=== PATIENT | male | born 1935 | race American Indian/Alaskan Native ===

== ENCOUNTER 2018-03-07 13:13 | Observation (INO) | payer BC, MEDICARE ==
[2018-03-07 13:43] LABS: BASO # 0.02 K/mm3 (0.0-2.0); BASO % 0.2 % (0.0-3.0); EOS % 0.4 % (1.5-5.0); GRAN # 5.93 (1.4-6.5); GRAN % 60.2 % (50.0-68.0); HEMOGLOBIN 13.2 g/dL (14.0-18.0); LYMPH # 3.3 (1.2-3.4); LYMPH % 33.5 % (22.0-35.0); MEAN CELL VOLUME 85.3 fl (80.0-105.0); MEAN CORPUSCULAR HEMOGLOBIN 28.1 pg (25.0-35.0); MEAN CORPUSCULAR HGB CONC 32.9 g/dl (31.0-37.0); MEAN PLATELET VOLUME 11.2 fl (7.0-11.0); MONO # 0.6 (0.1-0.6); MONO % 5.7 % (1.0-6.0); RBC 4.7 10^6/uL (3.5-6.1); RED CELL DISTRIBUTION WIDTH 15.8 % (11.5-14.5); WHITE BLOOD COUNT 9.9 10^3/uL (4.5-11.0)
[2018-03-07 14:00] LABS: ALB/GLOB RATIO 1.3 (1.1-1.8); ALBUMIN 3.8 g/dL (3.0-4.8); ALT/SGPT 21 U/L (7-56); AST/SGOT 20 U/L (17-59); BLOOD UREA NITROGEN 18 mg/dL (7-21); CALCIUM 9.3 mg/dL (8.4-10.5); GFR NON-AFRICAN AMERICAN > 60
--- NOTE | 2018-03-07 14:05 | RAD ---
Date of service: 03/07/2018 HISTORY: chest pain COMPARISON: 11/03/2013 FINDINGS: LUNGS: No active pulmonary disease. PLEURA: No significant pleural effusion identified, no pneumothorax apparent. CARDIOVASCULAR: No aortic atherosclerotic calcification present. Normal cardiac size. No pulmonary vascular congestion. OSSEOUS STRUCTURES: No significant abnormalities. VISUALIZED UPPER ABDOMEN: Normal. OTHER FINDINGS: None. IMPRESSION: No active disease.
[2018-03-07 14:11] LABS: B-TYPE NATRIURETIC PEPTIDE 134 pg/mL (0-450); TROPONIN I < 0.01 ng/mL
[2018-03-07] MEDS ORDERED: Iohexol 350 MG/100 ML VIAL ONE (14:24)
--- NOTE | 2018-03-07 14:39 | ED PDOC ---
Arrival/HPI - General Chief Complaint: Chest Pain Time Seen by Provider: 03/07/18 13:21 Historian: Patient - History of Present Illness Narrative History of Present Illness (Text): 03/07/18 13:33 83 year old male who has no significant past medical history who presents to the emergency department complaining of intermittent episodes of chest pain with most recent episode being yesterday. Per patient he was instructed to come to the emergency room for evaluation of his symptoms. Patient reports that the pain is localized to the midsternal region, and admits to having episodes of chest pain last week, which resolve with time. He denies taking any Aspirin or other medications to alleviate his episodes, and admits that chest pain is associated with shortness of breath. Of note he denies any dyspnea on exertion, and denies exacerbation of his symptoms with certain meals or activities. Patient states that he currently isn't having chest pain, but rates the severity of the episodes as 10/10. He has also been experiencing occasional abdominal pain at night, and notes that he has tried to belch to alleviate his chest pain. Patient also notes occasional left shoulder pain, and positional side pain. He is a former smoker, denies any history of hypertension or diabetes. Of note had a normal bowel movement this morning. Patient denies fevers, chills, cough, nausea, vomiting, diarrhea, back pain, neck pain, headache, or any other complaint. PMD: Time/Duration: 1 week Symptom Onset: Sudden Symptom Course: Intermittent Severity Level: 10 Context: Home Past Medical History - Provider Review Nursing Documentation Reviewed: Yes - Travel History Have you recently traveled outside [place] w/in the past 3 mons?: No - Infectious Disease Hx of Infectious Diseases: None - Tetanus Immunization Tetanus Immunization: Unknown - Past Medical History Past Medical History: No Previous - Psychiatric Hx Depression: No Hx Emotional Abuse: No Hx Physical Abuse: No Hx Substance Use: No - Surgical History Hx Amputation: Yes (traumatic at work tip of ) Hx Cholecystectomy: Yes (galstones remove) - Anesthesia Hx Anesthesia: Yes Hx Anesthesia Reactions: No Hx Malignant Hyperthermia: No - Suicidal Assessment Feels Threatened In Home Enviroment: No Family/Social History - Physician Review Nursing Documentation Reviewed: Yes Family/Social History: No Known Family HX Smoking Status: Never Smoked Hx Alcohol Use: No Hx Substance Use: No Hx Substance Use Treatment: No Allergies/Home Meds Allergies/Adverse Reactions: Allergies No Known Allergies Allergy (Verified 03/07/18 18:55) Home Medications: Home Meds Medication Instructions Recorded Confirmed RX: No Known Home Med 03/07/18 03/07/18 Review of Systems - Physician Review All systems were reviewed & negative as marked: Yes - Review of Systems Constitutional: absent: Night Sweats Respiratory: SOB. absent: Cough Cardiovascular: Chest Pain. absent: GREENE, Syncope Gastrointestinal: Abdominal Pain. absent: Nausea, Vomiting Genitourinary Male: absent: Dysuria Musculoskeletal: absent: Back Pain, Neck Pain Neurological: Dizziness (dizziness when lying down). absent: Headache Physical Exam Vital Signs Reviewed: Yes Vital Signs Temp Pulse Resp BP Pulse Ox 03/07/18 13:19 98.2 F 71 18 141/62 96 Temperature: Afebrile Blood Pressure: Normal Pulse: Regular Respiratory Rate: Normal Appearance: Positive for: Well-Appearing Mental Status: Positive for: Alert and Oriented X 3 - Systems Exam Head: Present: Atraumatic, Normocephalic Pupils: Present: PERRL Extroacular Muscles: Present: EOMI Conjunctiva: Present: Normal Mouth: Present: Moist Mucous Membranes Neck: Present: Normal Range of Motion Respiratory/Chest: Present: Clear to Auscultation, Good Air Exchange. No: Respiratory Distress, Accessory Muscle Use, Tender to Palpation Cardiovascular: Present: Regular Rate and Rhythm, Normal S1, S2. No: Murmurs Abdomen: No: Tenderness, Distention, Peritoneal Signs Back: Present: Normal Inspection, Other (Tenderness to palpation over left side trapezius muscle.) Upper Extremity: Present: Other (distal fingertip amputation of third digit of left hand). No: Cyanosis, Edema Lower Extremity: Present: Normal Inspection. No: Edema Neurological: Present: GCS=15, CN II-XII Intact, Speech Normal Skin: Present: Warm, Dry, Normal Color. No: Rashes Psychiatric: Present: Alert, Oriented x 3, Normal Insight, Normal Concentration Medical Decision Making ED Course and Treatment: 03/07/18 13:33 Impression: 83 year old male complaining of intermittent chest pain that started last week with associated shortness of breath. Differential Diagnosis included but are not limited to: ACS Pneumonia Pulmonary Embolism Plan: -- Abdominal and Pelvic CT with IV contrast -- EKG -- Labs -- Cardiac enzymes -- D-dimer -- Chest X-ray -- Pepcid -- Toradol -- Reassess and disposition Prior Visits: Notes and results from previous visits were reviewed. Progress Notes: 03/07/18 15:[address] Canela(PCP), who accepts patient onto his service. 03/07/18 15:15 Dr. Canela called back stating that the patient has a primary physician that admits to the hospital. After review of chart patients PCP is . Will contact PCP. 03/07/18 15:19 Discussed case with (PCP), who is aware of and accepts patient under his service, and requests for cardiology consult. Requests CTA. - Lab Interpretations Lab Results: 03/07/18 13:29 03/07/18 13:29 Lab Results 03/07/18 13:29: Sodium 140, Potassium 4.4, Chloride 105, Carbon Dioxide 27, Anion Gap 12, BUN 18, Creatinine 0.9, Est GFR ( Amer) > 60, Est GFR (Non- Af Amer) > 60, Random Glucose 97, Calcium 9.3, Magnesium 2.2, Total Bilirubin 0.7, AST 20, ALT 21, Alkaline Phosphatase 86, Troponin I < 0.01, NT-Pro-B Natriuret Pep 134, Total Protein 6.7, Albumin 3.8, Globulin 2.9, Albumin/Globulin Ratio 1.3 03/07/18 13:29: D-Dimer, Quantitative 244 H 03/07/18 13:29: WBC 9.9, RBC 4.70, Hgb 13.2 L, Hct 40.1 L, MCV 85.3, MCH 28.1, MCHC 32.9, RDW 15.8 H, Plt Count 244, MPV 11.2 H, Gran % 60.2, Lymph % (Auto) 33.5, [place] % (Auto) 5.7, Eos % (Auto) 0.4 L, Baso % (Auto) 0.2, Gran # 5.93, Lymph # (Auto) 3.3, [place] # (Auto) 0.6, Eos # (Auto) 0.0, Baso # (Auto) 0.02 I have reviewed the lab results: Yes - RAD Interpretation Narrative RAD Interpretations (Text): 03/07/[address] with IV contrast: Dictator : Yogi Saavedra MD FINDINGS: LOWER THORAX: Unremarkable. LIVER: Unremarkable. No gross lesion or ductal dilatation. GALLBLADDER AND BILE DUCTS: Unremarkable. PANCREAS: Unremarkable. No gross lesion or ductal dilatation. SPLEEN: Unremarkable. ADRENALS: Unremarkable. No mass. KIDNEYS AND URETERS: Unremarkable. No hydronephrosis. No solid mass. VASCULATURE: Unremarkable. No aortic aneurysm. Extensive aortic calcification BOWEL: Unremarkable. No obstruction. No gross mural thickening. APPENDIX: Normal appendix. PERITONEUM: Unremarkable. No free fluid. No free air. LYMPH NODES: Unremarkable. No enlarged lymph nodes. BLADDER: There is an enhancing mass on the left side of the bladder measuring 19 x 23 mm. This is suspicious for a bladder malignancy. Further evaluation is recommended. There is also a small stone in the bladder REPRODUCTIVE: Prostate is mildly enlarged. BONES: No acute fracture. OTHER FINDINGS: None. IMPRESSION: There is an enhancing mass on the left side of the bladder measuring 19 x 23 mm. This is suspicious for a bladder malignancy. Further evaluation is recommended. Small stone in the bladder. No acute intra-abdominal findings. 03/07/18 Chest X-ray: Dictator : Yogi Saavedra MD FINDINGS: LUNGS: No active pulmonary disease. PLEURA: No significant pleural effusion identified, no pneumothorax apparent. CARDIOVASCULAR:No aortic atherosclerotic calcification present. Normal cardiac size. No pulmonary vascular congestion. OSSEOUS STRUCTURES: No significant abnormalities. VISUALIZED UPPER ABDOMEN: Normal. OTHER FINDINGS: None. IMPRESSION: No active disease. Radiology Orders: 03/07/18 13:28 CHEST PORTABLE [RAD] Stat 03/07/18 13:42 ABDOMEN & PELVIS [ABD & PELVIS IV CONTRAST ONLY] [CT] Stat Smelting Engineer: Radiologist - EKG Interpretation EKG Interpretation (Text): 03/07/18 13:18 EKG shows NSR at 71 BPM with intermittent PVCs. No ST elevation or QT prolongation. Interpreted by me. Interpreted by ED Physician: Yes Type: 12 lead EKG - Scribe Statement The provider has reviewed the documentation as recorded by the Scribe Valdez Daigle Provider Scribe Attestation: All medical record entries made by the Scribe were at my direction and personally dictated by me. I have reviewed the chart and agree that the record accurately reflects my personal performance of the history, physical exam, medical decision making, and the department course for this patient. I have also personally directed, reviewed, and agree with the discharge instructions and disposition. Disposition/Present on Arrival - Present on Arrival Any Indicators Present on Arrival: No History of DVT/PE: No History of Uncontrolled Diabetes: No Urinary Catheter: No History of Decub. Ulcer: No History Surgical Site Infection Following: None - Disposition Have Diagnosis and Disposition been Completed?: Yes Diagnosis: ACS (acute coronary syndrome), Bladder mass Disposition: HOSPITALIZED Disposition Time: 15:19 Patient Plan: Admission Condition: STABLE
--- NOTE | 2018-03-07 15:07 | CT ---
Date of service: 03/07/2018 PROCEDURE: CT Abdomen and Pelvis with contrast HISTORY: abdominal pain COMPARISON: None. TECHNIQUE: Contrast dose: 100 cc of Omni 350 Radiation dose: Total exam DLP = 464.72 mGy-cm. This CT exam was performed using one or more of the following dose reduction techniques: Automated exposure control, adjustment of the mA and/or kV according to patient size, and/or use of iterative reconstruction technique. FINDINGS: LOWER THORAX: Unremarkable. LIVER: Unremarkable. No gross lesion or ductal dilatation. GALLBLADDER AND BILE DUCTS: Unremarkable. PANCREAS: Unremarkable. No gross lesion or ductal dilatation. SPLEEN: Unremarkable. ADRENALS: Unremarkable. No mass. KIDNEYS AND URETERS: Unremarkable. No hydronephrosis. No solid mass. VASCULATURE: Unremarkable. No aortic aneurysm. Extensive aortic calcification BOWEL: Unremarkable. No obstruction. No gross mural thickening. APPENDIX: Normal appendix. PERITONEUM: Unremarkable. No free fluid. No free air. LYMPH NODES: Unremarkable. No enlarged lymph nodes. BLADDER: There is an enhancing mass on the left side of the bladder measuring 19 x 23 mm. This is suspicious for a bladder malignancy. Further evaluation is recommended. There is also a small stone in the bladder REPRODUCTIVE: Prostate is mildly enlarged. BONES: No acute fracture. OTHER FINDINGS: None. IMPRESSION: There is an enhancing mass on the left side of the bladder measuring 19 x 23 mm. This is suspicious for a bladder malignancy. Further evaluation is recommended Small stone in the bladder No acute intra-abdominal findings.
--- NOTE | 2018-03-07 15:13 | CARD ---
APPROVED REPORT Date of service: 03/07/2018 EKG Measurement Heart [id number] <Conclusion> Sinus rhythm with premature atrial complexes Otherwise normal ECG
[2018-03-07 15:33] LABS: PH,URINE 6.5 (4.7-8.0); URINE BILIRUBIN NEGATIVE (NEGATIVE); URINE BLOOD LARGE (NEGATIVE); URINE GLUCOSE (UA) NEGATIVE (NEGATIVE); URINE LEUKOCYTE ESTERASE NEGATIVE Leu/uL (NEGATIVE); URINE PROTEIN 30 mg/dL (<30 mg/dL); URINE UROBILINOGEN 0.2 E.U./dL (<1 E.U./dL)
[2018-03-07 15:34] LABS: URINE APPEARANCE CLEAR (CLEAR); URINE COLOR YELLOW (YELLOW)
[2018-03-07 15:36] LABS: URINE RBC 25 - 30 /hpf (0-2)
[2018-03-07] MEDS ORDERED: Oxycodone/Acetaminophen 5/325 mg Tab PO PRN (15:44)
[2018-03-07] MEDS: levoFLOXacin 500 mg in D5W 500 MG/100 ML BAG IVPB SCH (16:42)
[2018-03-07] MEDS: Enoxaparin 30 mg Syringe SC SCH (16:43)
[2018-03-07 20:16] LABS: TROPONIN I < 0.01 ng/mL
[2018-03-07 22:23] VITALS: BMI 25.8
[2018-03-07] MEDS ORDERED: Influenza Vaccine 60 mcg/0.5 mL SYR (4YR UP) IM ONE (22:23)
[2018-03-07] MEDS ORDERED: Pneumococcal 23-Valent Vaccine IM ONE (22:23)
--- NOTE | 2018-03-08 02:59 | HP ---
DATE OF EXAM: 03/07/18 HISTORY OF PRESENT ILLNESS: The patient is an 83-year-old male, he was examined in the emergency room. The patient was evaluated in the emergency room for chest pain and epigastric pain. The patient has no history of nausea or vomiting. Evaluation in the emergency room, the patient has acute pain associated with mass in the bladder that is extruding from the bladder. The patient has blood in the urine with white cells. PAST MEDICAL HISTORY: The patient has a history of degenerative arthritis and lumbar degenerative disease. The patient has had previous history of gastritis. MEDICATIONS: The patient is not taking any medications at this time. ALLERGIES: HE HAS NO KNOWN ALLERGIES. SOCIAL HISTORY: He does not smoke and does not drink. There is no alcohol intake. PHYSICAL EXAMINATION: GENERAL: He is lying in bed. He has some minimal discomfort at this time in the epigastric area and chest. VITAL SIGNS: Pulse is 52, it was 71 and ranges between 50 and 70. Blood pressure is 120/70, the patient's respirations are 18 per minute and O2 sat is 96%. HEENT: Head is normocephalic. NECK: Thyroid is not enlarged. JVP is flat. Carotid pulses are present. LUNGS: Trachea is central. Breath sounds are vesicular. No adventitious sounds are heard. HEART: Normal sinus rhythm. S1 and S2 present. No murmurs. ABDOMEN: Soft. There is some minimal tenderness in the epigastric and central abdominal area. No masses are palpable. RECTAL: Deferred for now. LABORATORY DATA: Examination of the urine shows evidence of red blood cells and white blood cells. The patient's chemistry is within normal range. The patient's white count is within normal range. In summary, the patient also complains of intermittent claudication in his leg and some twitching of his left fingers, the nature of this has to be diagnosed. IMPRESSION AND PLAN: At this time, the patient has acute abdominal and epigastric chest pain. Cardiac evaluation done in the emergency room does not reveal any acute myocardial infarction. The patient's evaluation of the d-dimer shows there is abnormality. We are doing a CT angiogram to confidently diagnosed any pulmonary emboli. Since the patient had a CT scan of the abdomen with contrast today, the CT angiogram cannot be done until tomorrow. We will place the patient on anticoagulation such as Lovenox at this time and he will be placed on pain medication. Cardiac evaluation will be done with Dr. Blas and urological evaluation with Dr. Wilson, who is an urologist. As far as the patient's pain management, we will place the patient on Percocet 5/325 every 4 hours p.r.n. The patient also will be placed on antibiotic at this time for questionable urinary tract infection associated with mass in the bladder. Yosef Leigh MD MTDEfrem
--- NOTE | 2018-03-08 03:00 | CON ---
DATE: 03/07/2018 REASON FOR CONSULTATION: Chest pain, cardiac evaluation. BRIEF CLINICAL HISTORY: This is an 83-year-old male with no significant past medical history who has 2 episodes of chest pain, one yesterday and the sharp pain while the patient watching television and this is the same kind of pain 1 week ago, but he did not notice. Denies any prior episode of chest pain, dyspnea on exertion or any typical angina symptoms. Denies any palpitations, denies any shortness of breath. PAST HISTORY: Nothing significant. PAST SURGICAL HISTORY: Significant for cholecystectomy more than 15 years ago. SOCIAL HISTORY: Denies any smoking, quit 10 years ago. Denies any history of alcohol abuse. CURRENT MEDICATIONS: None. REVIEW OF SYSTEMS: A 14-point review of systems as per HPI. PHYSICAL EXAMINATION: VITAL SIGNS: Temperature afebrile, heart rate is 71, blood pressure 140/62. HEENT: PERRLA. Extraocular muscles Intact. NECK: Supple. No carotid bruit or thyromegaly. CHEST: Clear to auscultation. HEART: S1, S2 regular. ABDOMEN: Soft. EXTREMITIES: Clubbing and cyanosis negative. DIAGNOSTICS AND LABORATORY DATA: EKG shows normal sinus at rate of 71, APC is noted, otherwise within normal limits. WBC 9.9, hemoglobin 13.8, hematocrit 40.1, platelet count 244. Chemistry shows sodium 140, potassium 4.4, chloride of 105, carbon dioxide 27, anion gap of 12, BUN 18, creatinine 0.9. Troponin is 0.01. Urine shows large quantity of blood noted in the urine and protein positive in the urine. Chest x-ray within normal limits. CAT scan of the abdomen and pelvis was done because the patient complaining of abdominal pain as well and that shows no acute intraabdominal finding. A small stone noted in the bladder. There is enhancing mass of the left side of the bladder measuring 19 x 23 mm, suspicious mass could be malignancy. IMPRESSION: An 83-year-old male with no significant past medical history admitted with sharp chest pain. A CAT scan of the abdomen because of abdominal pain done that shows a bladder mass of 19 x 23 mm suspicious of malignancy, admitted for cardiac evaluation. Given multiple risks of coronary artery disease, age and previous smoker, check on a stress test, first troponin is negative, rule out serial CPK, troponin, lipid profile, TSH, hemoglobin A1c. Urine cultures may be urinary tract infection. Continue broad-spectrum antibiotics, gentle hydration and we will follow with you. Thank you providing us the opportunity in taking care of the patient, [place] Matias. Kam Blas MD
[2018-03-08 04:06] VITALS: RESP 20
[2018-03-08 06:32] LABS: BASO # 0.01 K/mm3 (0.0-2.0); BASO % 0.1 % (0.0-3.0); EOS # 0.1 (0.0-0.7); EOS % 0.7 % (1.5-5.0); GRAN # 3.51 (1.4-6.5); GRAN % 51.7 % (50.0-68.0); HEMOGLOBIN 12.9 g/dL (14.0-18.0); LYMPH # 2.9 (1.2-3.4); LYMPH % 42.1 % (22.0-35.0); MEAN CELL VOLUME 85.6 fl (80.0-105.0); MEAN CORPUSCULAR HEMOGLOBIN 27.7 pg (25.0-35.0); MEAN CORPUSCULAR HGB CONC 32.3 g/dl (31.0-37.0); MEAN PLATELET VOLUME 11.8 fl (7.0-11.0); MONO # 0.4 (0.1-0.6); MONO % 5.4 % (1.0-6.0); RBC 4.66 10^6/uL (3.5-6.1); RED CELL DISTRIBUTION WIDTH 16.2 % (11.5-14.5); WHITE BLOOD COUNT 6.8 10^3/uL (4.5-11.0)
[2018-03-08 06:52] LABS: ALB/GLOB RATIO 1.2 (1.1-1.8); ALBUMIN 3.5 g/dL (3.0-4.8); ALT/SGPT 20 U/L (7-56); AST/SGOT 19 U/L (17-59); BLOOD UREA NITROGEN 20 mg/dL (7-21); CALCIUM 8.8 mg/dL (8.4-10.5); GFR NON-AFRICAN AMERICAN > 60; HDL CHOLESTEROL 36 mg/dL (29-60)
[2018-03-08 07:02] LABS: TROPONIN I < 0.01 ng/mL
[2018-03-08 07:03] LABS: LDL CHOLESTEROL 144 mg/dL (0-129)
--- NOTE | 2018-03-08 07:39 | CP.PCM.PN ---
Subjective - Date & Time of Evaluation Date of Evaluation: 03/08/18 Time of Evaluation: 06:35 - Subjective Subjective: Awake, alert ,no distress Reason for consultation and follow up: Cardiac evaluation of chest pain Seen and examined by me and Dr. Blas Objective - Vital Signs/Intake and Output Vital Signs (last 24 hours): Temp Pulse Resp BP Pulse Ox 98.1 F 51 L 20 104/62 96 03/08/18 00:01 03/08/18 00:01 03/08/18 00:01 03/08/18 00:01 03/08/18 00:01 - Medications Medications: Current Medications Enoxaparin Sodium (Lovenox) 30 mg SC DAILY [facility]; Protocol Last Admin: 03/07/18 16:43 Dose: 30 mg Famotidine (Pepcid) 20 mg IVP DAILY [facility] Levofloxacin/Dextrose (Levaquin 500mg) 500 mg in 100 mls @ 100 mls/hr IVPB ANNA LY [facility]; Protocol Last Admin: 03/07/18 16:42 Dose: 100 mls/hr Oxycodone/Acetaminophen (Percocet 5/325 Mg Tab) 1 tab PO Q4H PRN PRN Reason: Pain, severe (8-10) - Labs Labs: 03/08/18 06:00 03/08/18 06:00 - Constitutional Appears: Non-toxic, No Acute Distress - Head Exam Head Exam: NORMAL INSPECTION, NORMOCEPHALIC - Eye Exam Eye Exam: Normal appearance Pupil Exam: NORMAL ACCOMODATION - ENT Exam ENT Exam: Mucous Membranes Moist, Normal Exam - Respiratory Exam Respiratory Exam: Clear to Ausculation Bilateral, NORMAL BREATHING PATTERN - Cardiovascular Exam Cardiovascular Exam: REGULAR RHYTHM, +S1, +S2 Additional comments: No JVD - GI/Abdominal Exam GI & Abdominal Exam: Soft, Normal Bowel Sounds - Extremities Exam Extremities Exam: Full ROM, Normal Capillary Refill - Neurological Exam Neurological Exam: Alert, Awake, Oriented x3 - Psychiatric Exam Psychiatric exam: Normal Affect, Normal Mood - Skin Skin Exam: Dry, Normal Color, Warm Assessment and Plan - Assessment and Plan (Free Text) Assessment: An 83 year old male who came in to the ER due to intermittent chest pains. No significant medical history. Former smoker. Troponin normal x 3. Patient also complaining of abdominal pain. CT of abdomen showed small stone noted on bladd er. There is an enhancing mass of the left side of the bladder measuring 19x 23 mm mass.Suspicious of malignancy. Denies chest pain now. For stress test and ECHO today. Plan: For ECHO today For Stress test today Kept NPO Denies chest pain, no distress Heart rate controlled Blood pressure controlled Continue current treatment Continue current medications Chart reviewed Will follow up Plan and treatment discussed with Dr. Blas
[2018-03-08] MEDS ORDERED: Iohexol 350 MG/100 ML VIAL ONE (07:42)
[2018-03-08 08:43] VITALS: O2SAT 95
--- NOTE | 2018-03-08 10:53 | PN ---
DATE: 03/08/2018 SUBJECTIVE: The patient is in [facility] room 376, bed 2. 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 The patient was admitted with chest pain yesterday and pain in his legs. The patient had also complaint of some movement of his two fingers on the left hand. PAST MEDICAL HISTORY: The patient has past history of degenerative arthritis, he has possibly history of gastritis. PHYSICAL EXAMINATION: VITAL SIGNS: Pulse is 51, blood pressure 104/62, respirations are 20, O2 sat is 96% on room air. The patient's temperature is normal. HEENT: Examination of the head is within normal limits. NECK: The thyroid is not enlarged. Carotid pulses are present. JVP is flat. There is no lymphadenopathy in the neck. LUNGS: Trachea central. Breath sounds are vesicular. No adventitious sounds. Respiratory rate is normal. HEART: Shows normal sinus rhythm, sinus bradycardia. There is transient reduction of the heart rate. Initially the patient had a heart rate of 170. ABDOMEN: Soft, some minimal tenderness in the central abdominal area, no masses felt. Liver and spleen not palpable. SENIOR PRODUCTION PLANNER: The patient is conscious, rational, oriented. Cranial nerves are intact. The patient's sensory and motor functions are clinically normal at this time. LABORATORY DATA: The patient's ultrasound of the leg was done, it is not read. The patient's CT scan report is posted. ASSESSMENT AND PLAN: The patient had evaluation with the latent fingerprint examiner who is planning to do a stress test this morning. The patient will have further test and determination. At this point, we have placed the patient with antibiotics and Lovenox prophylaxis. The patient is n.p.o. this morning but the patient is on a heart-healthy diet. We will continue further management based on the evaluation, today's test results and we will follow up. Yosef Leigh MD MTDD
--- NOTE | 2018-03-08 11:13 | CT ---
Date of service: 03/08/2018 PROCEDURE: CT Chest with contrast (Pulmonary Angiogram) HISTORY: SOB w/ chest pain elevated D-dimer COMPARISON: None available. TECHNIQUE: Axial computed tomography images were obtained of the chest in the pulmonary arterial phase of enhancement. Coronal and sagittal reformatted images were created and reviewed. Intravenous contrast dose: Radiation dose: Total exam DLP = 443.9 mGy-cm. This CT exam was performed using one or more of the following dose reduction techniques: Automated exposure control, adjustment of the mA and/or kV according to patient size, and/or use of iterative reconstruction technique. FINDINGS: PULMONARY ARTERIES: Unremarkable. No pulmonary embolism. AORTA: No acute findings. No thoracic aortic aneurysm. No aortic atherosclerotic calcification or mural plaque present. LUNGS: Minimal bibasilar discoid atelectasis. PLEURAL SPACES: Unremarkable. No effusion or pneumothorax. HEART: Unremarkable. No cardiomegaly. No significant pericardial effusion. LYMPH NODES: No lymphadenopathy. BONES, CHEST WALL: Unremarkable. No fracture or destructive lesion OTHER FINDINGS: Unremarkable. IMPRESSION: Minimal bibasilar discoid atelectasis.. No pulmonary embolus.
[2018-03-08] MEDS: levoFLOXacin 500 mg in D5W 500 MG/100 ML BAG IVPB SCH (12:10)
[2018-03-08] MEDS: Enoxaparin 30 mg Syringe SC SCH (12:10)
[2018-03-08 13:31] LABS: TOTAL IRON BINDING CAPACITY 216 ug/dL (261-462)
[2018-03-08 13:33] LABS: % IRON SATURATION 36 % (20-55); IRON 77 ug/dL (45-180)
--- NOTE | 2018-03-08 15:47 | CARD ---
APPROVED REPORT Date of service: 03/08/2018 Protocol: LEXISCAN Test Type: Lexiscan Sestamibi Stress Test Attending Physician: Dr. Kam Bennett Referring Physician: Dr. Yosef Leigh Test Indications: Chest Pain Height:5 ft 7 in Weight:165lbs Medications: LOVENOX, PEPCID LEVAQUIN, PERCOCET Medical History: 83 YEAR OLD MALE WITH A H/O BLADDER MASS, PROSTATE PROBLEMS, TONSILECTOMY AND CHOLECYSTECTOMY Target HR: 139 bpm Resting ECG: Sinus Bradycardia 43/min. Resting Heart Rate: 48 bpm Resting Blood Pressure: 122/72mmHg Submaximum (85%): 118 bpm PROCEDURE Pharmacologic stress testing was performed using 0.4mg per 5ml of regadenoson given intravenously over 7-10 seconds. POST EXERCISE Reason for Termination: Protocol completed Target HR: No Max HR: 47 bpm 55% of Maximum Predicted HR: 139 bpm Exercise duration: 00:31 min:sec, 0 Stage Exercise capacity: 1.0METs Max Blood Pressure: 122/72mmHg Blood Pressure response to exercise: normal resting BP - appropriate response Heart Rate response to exercise: appropriate Chest Pain: No, none Angina index: 0 Arrhythmia: No, none ST Change: No, none Deviation: 0 mm INTERPRETATION Stress EKG Conclusion: IV LEXISCAN NUCLEAR STRESS TEST NEGATIVE FOR CHEST PAIN AND NEGATIVE FOR ST-T CHANGES. NUCLEAR SCAN REPORT PENDING. Signed by Kam Bennett Electronically Approved: 03/08/2018 11:56:44 EXAM: Myocardial Perfusion REST/STRESS Stress Test Type: Pharmacologic Imaging Protocol The imaging protocol used to acquire images was Rest Tc-99m/stress Tc-99m 1 day Rest Spect myocardial perfusion imaging was performed in supine position 36 minutes following the injection of 10.5 mCi of Tc-99 Myoview. At peak stress, the patient was injected intravenously with 30.5mCi of Tc-99 tetrofosmin after an infusion time of minutes and seconds. Gated Stress Spect was performed 60 minutes after intravenous Tc-99 Myoview injection. The images were gated to evaluate regional wall motion and calculate ventricular ejection fraction.Images were reconstructed using backfilter projection method in short horizontal and verticle long axis. Spect slices were generated. LV Perfusion The quality of the study is good. The left ventricle is within normal limits in size. The right ventricle is unremarkable. The lung uptake is normal. The distribution of tracer reveals moderately and diffusely decreased perfusion in the apical and inferior pedersen on the stress study. The remainder of the LV myocardium is unremarkable. The rest myocardial perfusion study shows no significant change. Wall Motion Wall motion study shows good contractility of the left ventricle. LVEF = 51%. Conclusion 1. Probablynormal SPECT myocardial perfusion study. 2. Fixed, apical and inferior defects are most likely due to diaphragmatic attenuation. However, previous myocardial injury in this region cannot be ruled out. 3. Normal gated wall motion of the left ventricle.
--- NOTE | 2018-03-08 16:11 | PN ---
DATE: 03/08/2018 REASON FOR CONSULTATION AND FOLLOWUP: Chest pain, cardiac evaluation. Patient is scheduled for stress test and echo today. Troponin remains flat. No evidence of acute VA. This note is in addition to dictated by nurse practitioner. We will follow the stress test and echo. Further recommendation made after the stress test and echo. TSH and lipid profile have evaluated. Patient had hypercholesterolemia with LDL 144. We will start 40 mg of Lipitor. Thank you Dr. Leigh for providing the opportunity in taking care of patient, [place] Matias. Kam Blas MD
--- NOTE | 2018-03-08 16:26 | PN ---
DATE: 03/08/2018 SUBJECTIVE: The patient is an 83-year-old male, who is admitted to [facility] for complaint of chest pain as well as epigastric pain. He was admitted to rule out myocardial infarction as well as pulmonary embolus. He had an elevated D-dimer. On a CT scan, the patient was found to have a 2 cm bladder mass, felt to be suspicious for malignancy and a consultation was requested. The patient's urinalysis does show large blood with 25-30 rbc, 5-10 wbc, but negative for nitrites. CT scan of the abdomen and pelvis showed an enhancing mass on the left side of the bladder measuring 19 x 23 mm. Prostate was mildly enlarged. Kidneys were unremarkable. No hydronephrosis or solid mass. GFR is greater than 60 with a creatinine of 1. WBC count normal at 6.8, hemoglobin 12.9. IMPRESSION AND PLAN: This is an 83-year-old male, being evaluated for chest pain, possible pulmonary embolism. Urologically, the patient has hematuria as well as finding of a bladder mass on CT scan. I will schedule him for a cystoscopy with possible transurethral resection of bladder tumor. I already spoke with the operating room. Unfortunately, as this is a nonemergent procedure at this time, they had no available elective operating time obviously on this weekend and the patient will be scheduled for 03/12/2018 in the morning if he is medically cleared by Dr. Leigh and Cardiology at that time. Plan to keep the patient n.p.o. after midnight on 03/11/2018 and we will need to hold any anticoagulation prior to the planned procedure. I will discuss this further with his medical attending, Dr. Leigh. Valdo Wilson MD
--- NOTE | 2018-03-08 17:53 | CARD ---
APPROVED REPORT Date of service: 03/08/2018 EXAM: Two-dimensional and M-mode echocardiogram with Doppler and color Doppler. INDICATION Chest Pain 2D DIMENSIONS Left Atrium (2D)3.3 (1.6-4.0cm)IVSd1.0 (0.7-1.1cm) LVDd5.3 (3.9-5.9cm)PWd1.1 (0.7-1.1cm) LVDs3.9 (2.5-4.0cm)FS (%) 26.7 % LVEF (%)51.6 (>50%) M-Mode DIMENSIONS Aortic Root3.40 (2.2-3.7cm)Aortic Cusp Exc.1.90 (1.5-2.0cm) Aortic Valve AoV Peak Xtwtahhm504.0cm/Brianna Peak GR.5mmHg Mitral Valve MV E Agsmmsgy28.4cm/sMV A Pmrlphqr28.1cm/sE/A ratio0.8 TDI E/Lateral E'0.0E/Medial E'0.0 Tricuspid Valve TR Peak Rdhoxqxc554az/sRAP [id number] Peak Gr.33mmHg [id number] LEFT VENTRICLE The left ventricle is normal size. There is borderline to mild concentric left ventricular hypertrophy. Low normal , EF-50% There is mild hypokinesis in the apical anterior wall. Transmitral Doppler flow pattern is Grade III-reversible restrictive diastolic dysfunction. No left ventricle thrombus noted on this study. There is no ventricular septal defect visualized. There is no left ventricular aneurysm. There is no mass noted in the left ventricle. RIGHT VENTRICLE The right ventricle is normal size. There is normal right ventricular wall thickness. The right ventricular systolic function is normal. ATRIA The left atrium size is normal. The right atrium size is normal. The interatrial septum is intact with no evidence for an atrial septal defect. AORTIC VALVE The aortic valve is calcified but opens well. There is mild aortic regurgitation. There is no aortic valvular stenosis. There is no aortic valvular vegetation. MITRAL VALVE The mitral valve is thickened but opens well. Mitral regurgitation is mild. There is no mitral valve stenosis. There is no evidence of mitral valve prolapse. TRICUSPID VALVE The tricuspid valve leaflets are thickened , but open well. There is mild to moderate tricuspid regurgitation.RVSP-43 mmof Hg. There is no tricuspid valve stenosis. There is no tricuspid valve prolapse or vegetation. PULMONIC VALVE The pulmonic valve is mildly thickened. There is moderate pulmonic valvular regurgitation., multiple jets. There is no pulmonic valvular stenosis. GREAT VESSELS The aortic root is normal in size. The ascending aorta is normal in size. The pulmonary artery is normal. The IVC is normal in size and collapses >50% with inspiration. PERICARDIAL EFFUSION There is no pleural effusion. There is no pericardial effusion. <Conclusion> The left ventricle is normal size. There is borderline to mild concentric left ventricular hypertrophy. Low normal , EF-50% There is mild aortic regurgitation. Mitral regurgitation is mild. There is mild to moderate tricuspid regurgitation.RVSP-43 mmof Hg. There is moderate pulmonic valvular regurgitation., multiple jets. The IVC is normal in size and collapses >50% with inspiration. There is no pericardial effusion.
--- NOTE | 2018-03-08 19:01 | US ---
PROCEDURE: Lower extremity MARY exam HISTORY: Peripheral vascular disease with pain and claudication. Previous smoker PHYSICIAN(S): Red Michel MD. FINDINGS: The resting MARY's are normal: right, 1.07and left, 1.10. The brachial systolic pressures are symmetric. The high thigh pressures and waveforms are relatively normal. The calf PVR waveforms augment normally. No significant gradients are noted across the thighs. The ankle and metatarsal waveforms are relatively normal and symmetric. No significant pressure gradients are noted across the lower legs. IMPRESSION: 1. Relatively normal MARY and PVR examination at rest.
--- NOTE | 2018-03-08 19:05 | US ---
HISTORY: Leg pain and swelling. Evaluate for DVT PHYSICIAN(S): Red Michel MD. TECHNIQUE: Duplex sonography and color-flow Doppler with graded compression were used to evaluate the deep venous systems of both lower extremities. FINDINGS: The visualized deep venous systems of both lower extremities are sonographically normal and compressible. Normal wave forms and augmentation are seen. There is no sonographic evidence for deep venous thrombosis in the visualized segments of both lower extremities. IMPRESSION: No sonographic evidence for deep venous thrombosis in the visualized segments of both lower extremities.
--- NOTE | 2018-03-09 08:07 | CP.PCM.PN ---
Subjective - Date & Time of Evaluation Date of Evaluation: 03/09/18 Time of Evaluation: 07:25 - Subjective Subjective: Awake, alert ,no distress,denies chest pain Reason for consultation and follow up: Cardiac evaluation of chest pain Seen and examined by me and Dr. Blas Objective - Vital Signs/Intake and Output Vital Signs (last 24 hours): Temp Pulse Resp BP Pulse Ox 97.4 F L 46 L 20 117/64 95 03/08/18 16:17 03/09/18 06:00 03/08/18 16:17 03/08/18 16:17 03/08/18 16:17 Intake and Output: 03/09/18 03/09/18 06:59 18:59 Intake Total 180 Balance 180 - Medications Medications: Current Medications Atorvastatin Calcium (Lipitor) 40 mg PO DIN CAMILO Last Admin: 03/08/18 17:34 Dose: 40 mg Enoxaparin Sodium (Lovenox) 30 mg SC DAILY CAMILO; Protocol Last Admin: 03/08/18 12:10 Dose: 30 mg Famotidine (Pepcid) 20 mg IVP DAILY CAMILO Last Admin: 03/08/18 12:10 Dose: 20 mg Levofloxacin/Dextrose (Levaquin 500mg) 500 mg in 100 mls @ 100 mls/hr IVPB DAILY CAMILO; Protocol Last Admin: 03/08/18 12:10 Dose: 100 mls/hr Oxycodone/Acetaminophen (Percocet 5/325 Mg Tab) 1 tab PO Q4H PRN PRN Reason: Pain, severe (8-10) - Labs Labs: 03/08/18 06:00 03/08/18 06:00 - Constitutional Appears: Non-toxic, No Acute Distress - Head Exam Head Exam: NORMAL INSPECTION, NORMOCEPHALIC - Eye Exam Eye Exam: Normal appearance Pupil Exam: NORMAL ACCOMODATION - ENT Exam ENT Exam: Mucous Membranes Moist, Normal Exam - Cardiovascular Exam Cardiovascular Exam: +S1, +S2 Additional comments: No JVD - GI/Abdominal Exam GI & Abdominal Exam: Soft, Normal Bowel Sounds - Extremities Exam Extremities Exam: Full ROM, Normal Capillary Refill - Neurological Exam Neurological Exam: Alert, Awake, Oriented x3 - Psychiatric Exam Psychiatric exam: Normal Affect, Normal Mood - Skin Skin Exam: Dry, Normal Color, Warm Assessment and Plan - Assessment and Plan (Free Text) Assessment: An 83 year old male who came in to the ER due to intermittent chest pains. No significant medical history. Former smoker. Troponin normal x 3. Patient also complaining of abdominal pain. CT of abdomen showed small stone noted on bladder. There is an enhancing mass of the left side of the bladder measuring 19x 23 mm mass.Suspicious of malignancy. Denies chest pain now. Hypercholesterolemia, started on Lipitor. Normal MARY/PVR. ECHO done- LV size normal,LVEF 50%, Mild aortic regurgitation, Mild mitral regurgitation, Mild to moderate tricuspid regurgitation RVSP 43mmHg, Moderate pulmonic valvular regurgitation, no pericardial effusion. Stress test done- Normal stress test LVEF 51%. Troponin negative x 3. Rule out acute myocardial infarction. No evidence of ischemia. For possible cystoscopy on Sunday. Patient is cleared for procedure with moderate risk. No absolute contraindication. No evidence of ischemia or heart failure. Plan: ECHO done- LV size normal,LVEF 50%, Mild aortic regurgitation Mild mitral regurgitation Mild to moderate tricuspid regurgitation RVSP 43mmHg Moderate pulmonic valvular regurgitation, no pericardial effusion Stress test done- Normal stress test LVEF 51% Normal MARY/PVR CT of chest negative for pulmonary embolism For possible cystoscopy on Sunday Cleared for procedure from cardiac standpoint Moderate risk for procedure Denies chest pain, no distress Heart rate controlled Blood pressure controlled On Lovenox 30 mg daily,Lipitor 40 mg daily Continue current treatment Continue current medications Chart reviewed Will follow up Plan and treatment discussed with Dr. Blas
[2018-03-09 08:09] VITALS: BP 132/77; TEMP 98.1
[2018-03-09 09:07] LABS: PROTHROMBIN TIME 11.5 SECONDS (9.4-12.5)
[2018-03-09] MEDS: levoFLOXacin 500 mg in D5W 500 MG/100 ML BAG IVPB SCH (10:02)
[2018-03-09] MEDS: Enoxaparin 30 mg Syringe SC SCH (10:02)
[2018-03-09 11:56] VITALS: PULSE 60
--- NOTE | 2018-03-09 12:33 | PN ---
DATE: 03/09/2018 LOCATION: The patient is in room 376, bed 2. SUBJECTIVE: He was admitted with chest pain, and epigastric pain, and abdominal pain. Patient has no complaints of pain this morning. Vital Signs: Temperature 98.1, Pulse 47 -60, BP 132/77, respirations 20; oxygen saturation 95% on room air CVS: +S1,S2 present Lungs: clear to auscultation bilaterally Abdomen: soft, nontender, nondistended Extremities: no edema bilaterally Plan: The patient had a CAT scan of the abdomen, which shows evidence of bladder mass. The patient has hematuria. The EKG showed sinus rhythm with PACs. The patient had a cardiac stress test, chemical stress test yesterday and it shows evidence of possible previous myocardial damage, no acute injury noted at this time. The patient was seen by Dr. Blas, the Corporate Director and echocardiogram shows an ejection fraction of more than 50%. The patient's valvular apparatus seemed to be okay. The patient's chest x-ray is clear. The patient's chemistry, the BUN and creatinine within normal range, hemoglobin is 12.9, platelet count is 231,000. The patient will have PT/INR done today. He is scheduled for a cystoscopy on Sunday to evaluate the lesion on the bladder. The patient possibly is going to be evaluated by the rolling machine operator and be discharged today and instructions given to the patient, so that he can be in the same day surgery facility for followup cystoscopy. The patient's clinical condition today is stable. The patient has no acute problems, and the patient is aware of his condition, and his will be notified also regarding the arrangements. Yosef Leigh MD DINAH
--- NOTE | 2018-03-11 08:44 | PN ---
DATE: 03/09/2018 REASON FOR CONSULTATION AND FOLLOWUP: Chest pain, cardiac evaluation. This note is an addition to a dictation by the nurse practitioner. The patient underwent echo stress test. This stress test shows no reversible ischemia. Atypical chest pain. Troponin remains negative, flat. No evidence of acute ND. The stress test reported probable normal myocardial perfusion apical inferior defect due to diaphragmatic attenuation. No evidence of ischemia. Ejection fraction 51%. The patient had also an echocardiography done yesterday that showed ejection fraction of low 50% normal, [id number] tricuspid regurgitation 43, moderate pulmonary insufficiency, multiple jets. The patient is scheduled for OR by Dr. Wilson. Discussed with Dr. Leigh. Discussed with the patient's family. The patient is cleared to go for a procedure and needs a cystoscopy. The patient is cleared from cardiology point of view to go for cystoscopy with moderately underlying comorbid, but no absolute contraindication. No evidence of ischemia, no evidence of arrhythmia, no evidence of congestive heart failure. We will clear to go to [id number] risk though the procedure is a mild risk procedure. We will follow with you. Thank you Dr. Leigh for providing the opportunity in taking care of the patient, [place] Matias. Kam Blas MD
== END 2018-03-09 12:06 | disposition home or self-care (01) ==
LOC: ED 13:13 → ERH 15:14 → 3RSO 17:51 → OBSVTOIN 03-08 07:57 → INTOOBSV 03-08 07:57
PROVIDERS: ADMIT Internal Medicine; ATTEND Internal Medicine
DX: R07.9 Chest pain, unspecified (principal); R10.13 Epigastric pain; N32.9 Bladder disorder, unspecified; R31.9 Hematuria, unspecified; E78.00 Pure hypercholesterolemia, unspecified; I08.3 Combined rheumatic disorders of mitral, aortic and tricuspid valves; M19.90 Unspecified osteoarthritis, unspecified site; Z87.891 Personal history of nicotine dependence
CPT/HCPCS: 36415; 71045; 71275; 74177; 78452; 80053; 80061; 81001; 82550; 83036; 83540; 83550; 83615; 83690; 83735; 83880; 84100; 84443; 84484; 85025; 85378; 85610; 87086; 93005; 93017; 93306; 93923; 93970; 96372; 96374; 96375; 99285; A9502; G0378; J1650; J1885; J2785; Q9967

== ENCOUNTER → 2018-04-22 | Day surgery (SDC) | payer MEDICARE ==
[~2018-04-22] MED LIST: Glycopyrrolate 0.2 mg/ml (2ml vial) ONE; HYDROmorphone 0.5 mg/0.5 ml ISec IVP PRN; Lactated Ringer's 1,000 ML IV SCH; Midazolam 2 MG/2 ML VIAL ONE; Neostigmine Methylsulfate 3mg/3ml Syringe IV ONE; Propofol 10 mg/ml Inj (20 ML) ONE; Rocuronium 10 mg/ml (5 ml) ONE; cefTRIAXone (Rocephin) 1 gm Inj ONE
[2018-04-22 09:56] VITALS: O2SAT 98
[2018-04-22 10:51] VITALS: RESP 20; TEMP 97.5
[2018-04-22 11:23] VITALS: BP 114/52; PULSE 49
--- NOTE | 2018-04-22 20:26 | OP ---
PROCEDURE DATE: 04/22/2018 PREOPERATIVE DIAGNOSIS: Bladder mass. 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 PROCEDURE: Cystoscopy, transurethral resection of large bladder tumor, dilation of urethral meatus with sounds. ATTENDING SURGEON: Valdo Wilson MD. ANESTHESIA: General. SPECIMENS: Bladder tumor chips were sent to Pathology. DRAINS: A 20-Syrian 3-way Deleon catheter. COMPLICATIONS: There were none. DESCRIPTION OF PROCEDURE: After informed consent was obtained, the patient was taken to the operating room, placed on the operating table and general anesthesia was administered. The patient was placed in dorsal lithotomy position and prepped and draped in usual sterile fashion. First, a 21-Syrian cystoscope was placed in the patient's urethra. The meatus was somewhat tight and male urethral sounds were then used to dilate the meatus to 28-Syrian size. At this point, the cystoscope was then placed into the meatus and advanced proximally under direct vision until the bladder was entered. A full survey inspection of bladder was then performed, which revealed a large papillary and solid-appearing mass located on the left sidewall extending up to the dome and extending from the bladder neck area distally back on to the posterior wall proximally. The tumor was approximately 7 x 5 cm in area. Both ureteral orifices were visualized and appeared within normal limits. There were no other tumors noted. There were areas of hemorrhage and necrosis noted. At this point, the cystoscope was withdrawn and a 26-Syrian resectoscope with a visualizing obturator was passed into the bladder. The obturator was removed and a working element was then passed. Using a resecting loop, the tumor was then resected in its entirety down into the muscular wall. Any bleeding points encountered were then controlled using electrocautery. After the tumor had been completely resected, a Urovac device was then used to evacuate the tumor chips, which were then sent to Pathology as specimen. A rollerball electrode was then used to completely fulgurate the base of the tumor along with an area of surrounding normal mucosa. Final inspection revealed no remaining chips in the bladder. There was complete hemostasis from the tumor bed and at this point, the procedure was complete. The bladder was drained and the resectoscope was removed. A 20-Syrian 3-way Deleon catheter was then passed and placed to continuous bladder irrigation. The patient tolerated the procedure well and was returned to the supine position and taken to the recovery room awake and in stable condition. Exam of the urethra was within normal limits. Prostate was moderately enlarged and occlusive in appearance with lateral lobe growth. The patient tolerated the procedure well. He was taken to the recovery room awake and in stable condition. Valdo Wilson MD
== END | disposition home or self-care (01) ==
LOC: SDS 06:10
PROVIDERS: ATTEND Urology
DX: C67.9 Malignant neoplasm of bladder, unspecified (principal); F17.200 Nicotine dependence, unspecified, uncomplicated
CPT/HCPCS: 52240; 88307; J0696; J1170; J2001; J2250; J2405; J2704; J2710; J3010; J7120